=== PATIENT | male | born 1965 | race Caucasian/White ===

== ENCOUNTER → 2018-11-04 11:25 | Day surgery (SDC) | payer BC ==
[~2018-11-04 11:25] MED LIST: Acetaminophen TAB* 325 MG ONE; Buffered Lidocaine 1% SYRIN* 1 ML/SYRINGE INTRADERM ONE; Cisatracurium* 2 MG/ML MDV 5 ML ONE; Dexamethasone IV* 4 MG/ML 1 ML (4 MG) ONE; EPHEDrine (Pressors)* 50 MG/ML VIAL ONE; Famotidine IV* 10 MG/ML 2 ML (20 mg) IV ONE; Famotidine IV* 10 MG/ML 2 ML (20 mg) ONE; Gelatin ADSORBABLE (OPHTH)* OPHTH.FILM ONE; Gelfoam 12-7 ADSORBABL SPONGE* 1 EA SPONGE ONE; HYDROmorphone INJ1* 1 MG/ML SYRINGE ONE; Ketorolac INJ* 30 MG/ML 1 ML VIAL ONE; Lactated Ringers 1000 ML Bag* 1,000 ML IV SCH; Lidocaine 2% EPI 1:200000 MPF*10-20 ML VIAL ONE; Lidocaine 2% PF * 5 ML VIAL ONE; Midazolam* 1 MG/ML 5 ML VIAL (5 MG) ONE; Naloxone* 0.4 MG/ML 1 ML VIAL IV PRN; Ondansetron INJ* 2 MG/ML VIAL IV PRN; Ondansetron INJ* 2 MG/ML VIAL ONE; Oxymetazoline 0.05% NASAL SPR* 15 ML BTL ONE; Propofol* 10 MG/ML 20 ML BTL ONE; Triamcinolone Acetonide* 40 MG/ML 1 ML VIAL ONE; fentaNYL* 50 MCG/ML 2 ML VIAL (100 MCG VIAL) IV PRN; fentaNYL* 50 MCG/ML 2 ML VIAL (100 MCG VIAL) ONE; hydrALAZINE IV* 20 MG/ML VIAL ONE; oxyCODONE TAB* 5 MG TAB ONE; oxyCODONE/Acetamin 5/325 MG* TAB PO PRN
[2018-11-04 15:11] VITALS: BP 159/99
--- NOTE | 2018-11-04 18:22 | OP ---
DATE OF OPERATION: 11/04/18 - [facility] DATE OF : 69 SURGEON: Robi Cheung M.D. PRE-OP DIAGNOSIS: Pansinusitis. POST-OP DIAGNOSIS: Pansinusitis. OPERATIVE PROCEDURE: Bilateral videoendoscopic maxillary antrostomy, bilateral removal of maxillary sinus tissue. Bilateral anterior and posterior ethmoidectomy. BRIEF HISTORY: This is a 53-year-old gentleman with nasal obstruction and extensive nasal polyposis. Prolonged courses of steroids were not clinically helpful. DESCRIPTION OF PROCEDURE: The patient was taken to the operating room, general anesthetic was given, the patient was intubated. Nose was decongested with Afrin placed pledgets. A 0-degree telescope, 30-degree telescope, and other endoscopic sinus surgery instruments including the microshaver were utilized. The CT scan was available in the operating room and was used. Initially, we turned our attention to the polyps that were present. 2% lidocaine with epinephrine was infiltrated in the mucosa of the polyps on both sides and microshaver was used to remove the polyps completely allowing good visualization of the middle turbinate, uncinate region, and portions of the bulla of the turbinates on both sides. We then again infiltrated the mucosa surrounding these structures. We turned our attention to the left side. The uncinate process was identified and micro shaved away completely. The antrum was then examined and enlarged completely resecting out thick polypoidal and mucoid material within the antrum itself and copiously irrigating it. Then, the ethmoidal bulla was resected out using microshaver coursing posteriorly towards the skull base and superiorly into the nasal frontal duct area and laterally towards the lamina papyracea. Once adequate resection was carried out, the area was packed with some Gelfilm and Gelfoam. Then, we turned our attention to the right side. Here too, again , the uncinate process was peeled out anteriorly and microshaver was used. The antrostomy was then enlarged completely as much as possible towards the posterior fontanelle. Again, copious amount of polypoidal mucosa was removed from the antrum. We then turned our attention to the ethmoidal bulla, resecting it out using the microshaver coursing posteriorly through the ground lamella into the posterior ethmoidal cells and then superiorly into the nasal frontal duct area and laterally towards the lamina papyracea identifying as much of the mucosal hyperplastic tissue to removing it. Eventually, a small piece of Gelfilm and Gelfoam which was soaked with Kenalog was then placed in the middle turbinate region between the middle turbinate and lateral nasal wall as a spacer. The patient was then awakened, extubated, and sent to the recovery room in stable condition. Instrument and sponge counts were correct. Blood loss was approximately 100 cc. [id number]/[facility] #: [id number] [facility]
== END | disposition home or self-care (01) ==
LOC: OR 11:25
PROVIDERS: ATTEND Otolaryngology
DX: J32.4 Chronic pansinusitis (principal); J33.8 Other polyp of sinus; J45.909 Unspecified asthma, uncomplicated; Z85.828 Personal history of other malignant neoplasm of skin; Z87.891 Personal history of nicotine dependence
CPT/HCPCS: 88305; A9270-GY; J0360; J1100; J1170; J1885; J2250; J2405; J2704; J3010; J3301